=== PATIENT | male | born 2000 | race Hispanic/Latino ===

== ENCOUNTER 2019-01-07 16:37 | Emergency (ER) | payer OTHER, SELFPAY ==
[2019-01-07 16:38] VITALS: BP 122/82; PULSE 89; RESP 17; TEMP 36.4; O2SAT 100; BMI 18.3
--- NOTE | 2019-01-07 16:52 | ED.DCSUM_ITS ---
- ER Visit Summary Date of Service: 01/07/19 Chief Complaint: Left wrist injury at work History of Present Illness: The patient is a 18 M no seen past medical or surgical history. Patient works at [employer]. 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 When he went to grab something and move it he injured his left wrist. No falls. No prior history. He is right-hand dominant. He does state that he is feeling better today. His family wanted to have it checked out. Will make his Worker's Comp. Physical Examination: Well-appearing young male. Vital signs stable afebrile. HEENT exam unremarkable. Lungs clear to auscultation. Heart regular rhythm. No murmur. Abdomen soft nontender. Patient is moving all 4 extremities. Neurovascular intact. Specifically the left shoulder and elbow are completely nontender. His left wrist he has full flexion extension radial and ulnar deviation. He has no gross bony deformity. There is no swelling. No redness or warmth. Normal radial pulse. 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 Normal touch sensation. Normal range of motion all digits. Test Results: Patient was offered but deferred a wrist x-ray at this time. He states he does not want to make a big deal out of this. Emergency Department Course and Treatment: Ice to the wrist. Motrin for pain and inflammation. Follow-up if not improving. Treatment Plan: Ice, Motrin and follow-up if not improving. Disposition: Discharge Impression: Left wrist sprain Worker's Comp. injury This note was generated with [employer] dictation software. It may contain incorrect words, spelling, and punctuation that were not noted in review of the chart prior to signing ED Disposition - Plan for ED Patient: Referrals: NOT,DEFINED [Primary Care Provider] -
--- NOTE | 2019-01-07 16:53 | DCINST.ED_ITS ---
ED Disposition - Plan for ED Patient: Disposition: Home or Assisted Living Instructions: ED Sprain Wrist Referrals: [facility] [GROUP OF PHYSICIANS] - 1 Week if not improving Additional Instructions: Ice and Motrin to decrease pain and inflammation. If not improving in 1 week follow-up with corporate care and you may need an x- ray. You may want to consider using a wrist splint at work if needed.
== END 2019-01-07 17:08 | disposition home or self-care (01) ==
LOC: ED 17:06
PROVIDERS: Emergency Provider Emergency Medicine
DX: S63.502A Unspecified sprain of left wrist, initial encounter (principal); X58.XXXA Exposure to other specified factors, initial encounter; Y93.9 Activity, unspecified; Y92.512 Supermarket, store or market as the place of occurrence of the external cause; Y99.0 Civilian activity done for income or pay; Z72.0 Tobacco use
CPT/HCPCS: 99283